=== PATIENT | male | born 1980 ===

== ENCOUNTER 2025-01-12 09:18 | Day surgery (SDC) | payer OTHER, SELFPAY ==
--- NOTE | 2024-12-27 08:34 | HPS.HSE ---
Family Physician
-
Family Physician: NOT KNOW UNKNOWN - PT DOES
Chief Complaint
-
Supraventricular tachycardia.
History of Present Illness
The patient is a 44 year old male presenting today for supraventricular tachycardia. The patient reports a longstanding history of palpitations and increased anxiety associated with his arrhythmia. He notes that his palpitations have been
increasing in severity and duration despite reported compliance with current medical therapy. Pharmacological therapy includes Diltiazem and Metoprolol Succinate. Other prior treatment measures have included Valsalva maneuvers. He notes that his
current symptoms greatly interfere with his activities of daily living and overall impact his quality of life. He is interested in pursuing with an EP study and supraventricular tachycardia ablation for further arrhythmia management. He denies any
current complaints today such as chest pain, shortness of breath, nausea, vomiting, diarrhea, lightheadedness, dizziness, cough, sore throat, or fever.
Medical History
Past Medical History
Past Medical History: Reports Other
Additional Past Medical History:
1. Supraventricular tachycardia, pharmacological therapy with Diltiazem and Metoprolol Succinate.
2. Hypertension with white coat syndrome.
3. Aortic regurgitation.
4. GERD.
5. Hemorrhoids.
6. Benign paroxysmal positional vertigo.
7. Herniated disc of lumbar spine.
8. Anxiety.
9. Obesity, BMI 35.9.
Past Surgical History: Reports Other
Additional Past Surgical History:
1. Appendectomy.
2. Nasal septum surgery.
3. L[place] teeth extraction.
4. Colonoscopy.
Social History
Tobacco: Non-smoker
Alcohol: None
Personal:
Living: With Family (in a 3 story home. )
Family History
Family History: Not pertinent
Allergies / Home Medications
Allergy/Medication List:
Home medications:
1. Co Q10 200 mg p.o. daily.
2. Diltiazem 240 mg p.o. at bedtime.
3. Fish Oil 2,000 mg p.o. at bedtime.
4. Losartan 25 mg p.o. at bedtime.
5. Metoprolol Succinate 50 mg p.o. twice a day.
6. Vitamin D3-K2 1 capsule p.o. daily.
Allergies: No known allergies.
Review of Systems
-
A 12 point ROS was completed and negative except as noted: Yes
Physical Exam
Vital Signs
Blood pressure 161/98 in the setting of anxiety. Heart rate 67. Respirations 18. Pulse ox 98% on room air.
Height 6 feet, 0.5 inches. Weight 121.7 kg. BMI 35.9.
Physical Exam
General: Well Developed, Well Nourished and No Apparent Distress
HEENT: NormoCephalic, Moist mucous membranes, Atraumatic and PERRLA
Respiratory: Clear
Cardiac: Regular Rhythm
GI: Soft, Non Tender, Non Distended and Other (Obese. )
Musculoskeletal: No Edema and Normal Gait & Station
Skin: Warm and Dry
Neuro: AO x 3 and Nonfocal/grossly intact
Laboratory Results
-
DIAGNOSTIC STUDIES as of 12/27/2024: White blood cell count 7.7. Hemoglobin 15.1. Platelet count 297,000. Sodium 142. Potassium 4.4. BUN 15. Creatinine 1.1. Glucose 112. Calcium 9.7. Magnesium 1.9. AST 32. ALT 32. Albumin 5.0.
EKG 12/27/2024: Normal sinus rhythm.
Echocardiogram 11/01/2024: Estimated ejection fraction is 56.6%. Concentric remodeling of the left ventricle. Trace to mild aortic regurgitation. Study done in normal sinus rhythm. No significant changes since 2019.
Nuclear stress test 11/08/2024: Low risk stress test. No clear evidence of ischemia or infarction noted on perfusion images.
Impression/Plan
-
IMPRESSION/PLAN:
1. Supraventricular tachycardia: The patient is in need of an EP study and supraventricular tachycardia ablation with Dr. Jasiel Ram on 01/12/2025. The benefits and risks of the procedure have been explained to the patient. The patient
understands these risks and wishes to proceed.
[2024-12-27 09:00] VITALS: BMI 35.9
[2024-12-27 09:21] LABS: % Basophils 1.4 % (0-2); % Eosinophils 6.3 % (0-6); % Immature Granulocytes 0.3 % (0-0.5); % Lymphocytes 25.6 % (20.5-51.1); % Monocytes 7.5 % (1.7-9.3); % Neutrophils 58.9 % (42.2-75.2); Absolute Basophils 0.1 10^3/uL (0-0.2); Absolute Eosinophils 0.5 10^3/uL (0-0.7); Absolute Monocytes 0.6 10^3/uL (0.1-0.6); Absolute Neutrophils 4.6 10^3/uL (1.4-6.5); Hematocrit 43.5 % (39.0-52.0); Hemoglobin 15.1 g/dL (13.0-18.0); Mean Corp Hgb Conc. 34.7 g/dL (33.0-37.0); Mean Corpuscular Volume 86.3 fL (80.0-94.0); Nucleated Red Blood Cells % 0 % (-); Platelet Count 297 10^3/uL (130-400); Red Blood Cell Count 5.04 10^6/uL (4.70-6.10); White Blood Cell Count 7.7 10^3/uL (4.8-10.8)
[2024-12-27 09:38] LABS: ALT (SGPT) 32 U/L (0-50); AST (SGOT) 32 U/L (17-59); Alkaline Phosphatase 78 U/L (38-126); Blood Urea Nitrogen 15 mg/dl (9-20); Calcium 9.7 mg/dl (8.4-10.2); Carbon Dioxide 29 mmol/L (22-30); Chloride 104 mmol/L (98-107); Estimated Creatinine Clearance 117 ml/min; Glucose 112 mg/dl (70-99); Magnesium 1.9 mg/dl (1.6-2.3); Potassium 4.4 mmol/L (3.5-5.1); Sodium 142 mmol/L (135-145); Total Bilirubin 0.6 mg/dl (0.2-1.3); Total Protein 7.9 g/dl (6.3-8.2); eGFR > 60.00
[2025-01-12] VITALS (16 sets, daily range): BP systolic 151–193; BP diastolic 85–113; BMI 35.9
--- NOTE | 2025-01-12 10:51 | ITS.CL.ABL ---
Addendum entered and electronically signed by Jasiel Ram DO 01/12/25 21:03:
Addendum:
Following procedure and recovery, patient was noted to have a swollen uvula by anesthesia. In discussion with anesthesia physician, patient was given Benadryl and steroids which had some mild improvement. It is likely per anesthesia's evaluation
and that nasal trumpet caused irritation to uvula during procedure and cardioversion. In evaluation of patient this evening, patient reporting mild improvement in denying any shortness of breath difficulty breathing. Notes mild irritation in back
of throat. Will continue to monitor and admit patient overnight for surveillance. If unchanged, consider evaluation by ENT. Thank you.
Original Note:
Parts Counterman - Ablation
Ablation
Procedure Report:
Primary Care: ZIGGY Franklin
Primary Dump Truck Driver Off Highway: Dr. Noelle Tao
Procedure Date: 01/12/2025
Procedure
Electrophysiology Study with SVT ablation
Left atrial recording / pacing
IV drug for arrhythmia induction
Transseptal Access
Electroanatomic Mapping
Intracardiac Ultrasound
Patient History
Patient's pleasant 44-year-old male with a past medical history significant for hypertension, anxiety, obesity, and symptomatic SVT; appeared to long RP tachycardia on surface EKG.
Method
After informed consent was obtained, the patient was brought to the EP lab in a post-absorptive, non-sedated state. A peripheral IV was in place. Continuous electrocardiography, blood pressure and pulse oximetry monitoring was initiated and
cardioversion / defibrillator electrodes were positioned on the chest in an AP orientation. A 'time-out' was called. Conscious sedation was administered with the assistance of the anesthesia services, and local anesthesia was given at the femoral
vein access sites.
Using modified Seldinger technique, vascular access was achieved and sheaths were placed. Multipolar catheters were advanced to the coronary sinus, His bundle recording position, right ventricle, and high right atrium. Following the determination
of baseline conduction intervals, comprehensive EP study was performed. Pacing and recording from the RA, RV, HBE, and CS / LA was performed.
For arrhythmia details, see below.
Fluoroscopy time:
4.2 min; 11.19 mGy; DAP 3.46
Total RF time:
8 min 12s (22 lesions)
LA Pressure:
Pre: 11 mmHg (in AF)
Post: 2 mmHg (in SR)
Estimated Blood Loss
5 mL
Complications
None
At the end of the procedure, all catheters and sheaths were removed and hemostasis was assured with figure of 8 suture and manual pressure. The patient was returned to the recovery area in stable condition.
Access Sites:
Left Femoral Vein: 2 sheaths (10 Fr, 6 Fr)
Right Femoral Vein: 2 sheaths (9 Fr upsized to 11.5 Fr, 7 Fr, 6 Fr)
Baseline Intervals:
Rhythm: SR
MA: 156 ms
AH: 81 ms
HV: 46 ms
QRS: 95 ms
QT: 375 ms
Post-Procedure Intervals:
MA: 177 ms
AH: 86 ms
HV: 42 ms
QRS: 60 ms
QT: 400 ms
QTc: 456 ms
A-A: 769 ms
R-R: 769 ms
AV Conduction:
- AVWB at 350 msec
- VAWB at 410 msec
Refractory Periods
- AERP 600/300 ms (no jump or AVNERP noted)
Procedure Synopsis:
The patient entered the room in sinus rhythm. Following ultrasound-guided access (images stored and record), catheters were placed in appropriate position (HRA, his position, coronary sinus, and RV apex). Baseline measurements were performed.
Baseline functional testing was performed. Patient study was initiated with VA Wenckebach. During ventricular pacing, with a cycle length nearing 330 ms, atrial activation is noted by coronary sinus change from concentric to eccentric activation
with CS 1-2/3-4 earliest (in further review of CS 3�4 appeared earliest). Next AV Wenckebach was performed. Para-Hisian pacing was performed demonstrated a rachael response. No induction of arrhythmia at this time. Atrial pacing with a single
extrastimuli in decremental fashion was performed. Tachycardia was induced at 600/270 ms. Tachycardia was narrow complex, 340 ms cycle length, eccentric activation with CS 3�4 earliest. Ventricular overdrive pacing demonstrated a V�a�V response
ruling out AT. PPI minus TCL was greater than 115 with SA minus VA greater than 85. Atrial pacing from CS 1�2 demonstrated a PPI minus TCL of roughly 50 ms. Surface ECG during tachycardia appears as clinical SVT noted by ECG. Based on these
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 Ventricular overdrive pacing terminated the arrhythmia. Arrhythmia was once more induced however this degenerated into atrial fibrillation. Cardioversion was
performed twice however arrhythmia with spontaneous induction degenerated once more and atrial fibrillation. Therefore, additional access was obtained in standard fashion as noted above and a 10 British short sheath was placed in the left groin for
introduction of intracardiac ultrasound. Next, the short 9 British sheath was exchanged for an 11.5 British steerable sheath. Intracardiac ultrasound (ICE) was carefully advanced into the right atrium to guide sheath placement over a J-wire, catheter
placement, guide trans-septal puncture, identify potential complications, identify anatomic structures and ensure proper contact between ablation catheter and tissue. Heparin was given prior to trans-septal puncture. Heparin was given to achieve and
maintain a target ACT of 300-400 seconds throughout the procedure. Trans-septal access was performed under ICE guidance. The trans-septal puncture was performed with a SafeSept wire through a Brockenbrough needle assembly through the steerable
sheath. The wire was visualized as it entered the LSPV and system advanced under ICE guidance and fluoroscopy into the LA. The Brockenbrough needle assembly, SafeSept wire and sheath dilator were removed under negative pressure. LA pressure was
measured and recorded. HD advisor grid was advanced into the left atrium. Cardioversion was once more performed and upon initial mapping, patient spontaneous return of his AVRT via inferolateral left-sided pathway which degenerated into atrial
fibrillation. Therefore, HD advisor grid was removed and TactiCath DF SE irrigated ablation catheter was advanced into the LA. ablation was performed in the area of the inferolateral pathway bracketing CS 3�4 electrodes which appeared to be
earliest atrial activation. Careful monitoring was performed during ablation monitoring impedance, temperature, power. Ablation was performed with 30 W. Following ablation within this region, patient was once more cardioverted with with
hoahaoism of sinus rhythm. For the remainder of the procedure, patient did not demonstrate atrial fibrillation. Subsequent atrial extrastimuli pacing induced occasional echo beats through the inferolateral pathway allowing fine-tuned mapping of
this region. Isoproterenol was also used allowing for nonsustained SVT. Following thorough and extensive mapping within this region, additional ablation lesions were performed in this region. Additional electrophysiology study was performed in an
attempt to reinduce his arrhythmia or other supraventricular arrhythmias. Patient was noninducible. Additionally, placing the ablation catheter within the LV and pacing from ablation catheter demonstrated concentric activation and no activation of
atrium via the inferolateral pathway which had been ablated. Following waiting phase, electrophysiology study once more performed with attempt for induction of arrhythmias, no arrhythmias were induced. Intracardiac ultrasound demonstrated no
pericardial effusion or changes during study or at study completion. Catheters and sheaths were removed and protamine given. Hemostasis achieved with [id number] suture and manual pressure to both groins.
Recommendations
- If patient meeting clinical metrics, okay for discharge home
- Bedrest with straight-leg precautions 4 hours
- Eliquis 5 mg twice daily for 30 days
- Continue home medications as indicated
- Follow-up in office in 4-6 weeks
Jasiel Ram DO, FAC, [facility]
Clinical Cardiac Electrophysiology
cc: Andrea Minaya, ZIGGY; Dr. Noelle Tao
[2025-01-12 12:50] LABS: ACT-LR - POC > 397 Seconds (116-155)
[2025-01-12 12:51] LABS: ACT-LR - POC 326 Seconds (116-155)
[2025-01-12 13:10] LABS: ACT-LR - POC 335 Seconds (116-155)
[2025-01-12 14:05] LABS: ACT-LR - POC > 397 Seconds (116-155)
[2025-01-12 14:05] LABS: ACT-LR - POC > 397 Seconds (116-155)
[2025-01-12 14:12] LABS: ACT-LR - POC 348 Seconds (116-155)
[2025-01-12 14:13] LABS: ACT-LR - POC 358 Seconds (116-155)
[2025-01-12 14:29] LABS: ACT-LR - POC 197 Seconds (116-155)
[2025-01-12 15:18] LABS: ACT-LR - POC > 397 Seconds (116-155)
--- NOTE | 2025-01-12 15:29 | CM ---
Asked to check co-pay for Eliquis 5 mg po bis. His co-pay would be $50.00 a month. He has commercial insurance so he can use the $10.00 co-pay card. Updated the BEDSPREAD SEAMER.
[2025-01-12] MEDS: CARDIZEM CD 240 MG PO (16:40)
[2025-01-12] MEDS: COZAAR 25 MG PO (16:41)
[2025-01-12] MEDS: ANESTHETIC LOZENGE 1 LOZENGE PO (16:44)
[2025-01-12] MEDS: BENADRYL 25 MG PO (17:49)
[2025-01-12] MEDS: DECADRON 10 MG IV (18:32)
--- NOTE | 2025-01-12 18:42 | PTCARENOTE ---
Anesthesia ordered meds and spoke with Dr Flores ,waitng to see Dr Flores as per patient being admitted
[2025-01-12] MEDS: TOPROL XL 50 MG PO (20:32)
[2025-01-12] MEDS: ELIQUIS 5 MG PO (21:26)
--- NOTE | 2025-01-12 21:39 | PTCARENOTE ---
Received pt from laborer heading @ change of shift. AAOx3. BP 190/95. Other VSS. Right and left groin clean, dry, and intact. Pt having 6/10 throat pain/discomfort. Feels as though he 'has phlem that he cannot clear.' Denies SOB @ this time. Discussed plan
of care for evening and notifying RN with any chest pain, further throat discomfort, SOB, or feeling as though his throat is closing. Pt verbalized understanding. Call onofre within reach.
[2025-01-13] MEDS: DECADRON 10 MG IV (03:40)
[2025-01-13 03:42] VITALS: BP 140/79
[2025-01-13 04:36] LABS: Hematocrit 40.7 % (39.0-52.0); Hemoglobin 14.5 g/dL (13.0-18.0); Mean Corp Hgb Conc. 35.6 g/dL (33.0-37.0); Mean Corpuscular Hgb 30.2 pg (27.0-31.0); Mean Corpuscular Volume 84.8 fL (80.0-94.0); Mean Platelet Volume 10.6 fL (7.4-10.4); Platelet Count 282 10^3/uL (130-400); Red Cell Dist. Width 12.9 % (11.5-14.5); White Blood Cell Count 10.8 10^3/uL (4.8-10.8)
[2025-01-13 05:02] LABS: Blood Urea Nitrogen 11 mg/dl (9-20); Calcium 10.1 mg/dl (8.4-10.2); Carbon Dioxide 23 mmol/L (22-30); Chloride 108 mmol/L (98-107); Estimated Creatinine Clearance > 125 ml/min; Glucose 137 mg/dl (70-99); Magnesium 1.9 mg/dl (1.6-2.3); Potassium 4.3 mmol/L (3.5-5.1); Sodium 142 mmol/L (135-145); eGFR > 60.00
[2025-01-13 05:12] VITALS: BMI 34.9
[2025-01-13 07:06] VITALS: BP 143/77
[2025-01-13] MEDS: ELIQUIS 5 MG PO (09:27)
[2025-01-13] MEDS: TOPROL XL 50 MG PO (09:27)
--- NOTE | 2025-01-13 10:18 | W.PN.CARDCBS ---
Addendum entered and electronically signed by Facundo Alaniz MD 01/13/25 10:40:
Patient seen and examined
Agree with CR HUMAN RESOURCES ASSISTANT MANAGER note and assessment
Agree with MUNICIPAL ENGINEER plan
����Physical Exam
���������������������General:��no apparent distress, not acutely ill
���������������������������Neck:��supple. no meningeal signs. normal psoterior pharynx
������������������������
���������������������������Heart:��s1/s2 regular rate and rhythm, no murmur. equal radial pulses.
��������������������������Lungs: ��no acute respiratory distress. clear bilaterally
����������������������Abdomen:�normal bowel sounds. not tender. no CVAT
��������������������������Neuro:��alert and oriented. no focal neurological deficits
������������������������������Skin: ��no rash
�����������������������Psychiatric:�well kept. interactive and cooperative
�����������������������Extremities:��no edema. no calf tenderness. negative homans. good distal pulses
Impression:
Symptomatic SVT
post LA SVT ablation 01/12/25
post procedure uvula swelling
HTN
BPPV
Anxiety
LDD
GERD
Plan:
post SVT ablation he was having throat swelling and irritation with difficulty swallowing post procedure
admitted overnight for observation, treated by anesthesia with steroids and Benadryl
this morning much improved, no difficulty swallowing and stable for discharge from a cardiovascular perspective
During the procedure Atrial fibrillation was induced requiring multiple Cardioversion
tele SR, no ectopy or atrial fibrillation seen
1 month of Eliquis
continue diltiazem and metoprolol with eventual discontinuation
Activity restrictions reviewed
f/u Dr. Ram in 1 mo
f/u ATC in 3 mo
home today
Original Note:
Today's Communication / Plan
-
stable for d/c home
Impression / Plan
-
PCP: Andrea Minaya PA-C
CDY: Dr. Tao
Impression:
Symptomatic SVT
post LA SVT ablation 01/12/25
post procedure uvula swelling
HTN
BPPV
Anxiety
LDD
GERD
Plan:
post SVT ablation he was having throat swelling and irritation with difficulty swallowing post procedure
admitted overnight for observation, treated by anesthesia with steroids and Benadryl
this morning much improved, no difficulty swallowing
During the procedure Atrial fibrillation was induced requiring multiple Cardioversion
tele SR, no ectopy or atrial fibrillation seen
groins stable
He will be on OAC Eliquis for 1 month
continue diltiazem and metoprolol
Activity restrictions reviewed
f/u Dr. Ram in 1 mo
f/u ATC in 3 mo
home today
Progress Note - Director [employer]
Subjective
Date of Service: January 13, 2025
denies cp, sob, mild throat irritation but much improved from last night
Objective
Labs:
01/13/25 04:01
01/13/25 04:01
Labs
Hgb 14.5 g/dL (13.0-18.0) 01/13/25 04:01
Hct 40.7 % (39.0-52.0) 01/13/25 04:01
Plt Count 282 10^3/uL (130-400) 01/13/25 04:01
Sodium 142 mmol/L (135-145) 01/13/25 04:01
Potassium 4.3 mmol/L (3.5-5.1) 01/13/25 04:01
BUN 11 mg/dl (9-20) 01/13/25 04:01
Creatinine 0.8 mg/dL (0.7-1.3) 01/13/25 04:01
Glucose 137 mg/dl (70-99) H 01/13/25 04:01
Vital Signs and I&O:
Vital Signs
Temp Pulse Resp BP Pulse Ox
98.7 F 67 20 143/77 96
01/13/25 07:06 01/13/25 07:45 01/13/25 07:06 01/13/25 07:06 01/13/25 09:33
Vital Signs
Temp Pulse Resp BP Pulse Ox
98.7 F 67 20 143/77 96
01/13/25 07:06 01/13/25 07:45 01/13/25 07:06 01/13/25 07:06 01/13/25 09:33
Intake & Output
01/11/25 01/12/25 01/13/25 01/14/25
06:59 06:59 06:59 06:59
Output Total 500 / 500
Balance -500 / -500
Physical Exam
Physical Exam
NAD, AOX3
S1, S2, RRR
CTAB, non labored, no wheeze
SNTND bsx4
b/l groins c/d/i no HT, soft
--- NOTE | 2025-01-13 11:10 | PTCARENOTE ---
Pt seen by Anesthiologist, and Roseann Duff NP. Telemetry and IV device removed. Discharge instructions reviewed with pt and his regarding activity and driving restrictions, wound care, medications and their possible side effects,
reporting cares and concerns and follow up appt's. Very good understanding taught back to this RN. Pt escorted out via wheelchair and discharged to home.
--- NOTE | 2025-01-13 12:34 | CM ---
CM following for DC planning needs.
Pt. for DC today. There are no concerns or needs noted.
Pt. is functionally indep. at baseline w/ ADLs, mobility without the use of any assisted device.
Plan- home
--- NOTE | 2025-01-13 14:06 | W.DS.TRANS ---
DC Summary - Solvent Recoverer
-
Discharge Instructions:
Sleep Apnea Risk Intermediate
Discharge Diagnosis/Procedures SVT post ablation
Diet Low Cholesterol
Driving Restrictions No driving for 24 hours
Instructions: Apixaban
Stand-Alone Forms: DC Instructions- Cath/EP Lab
Return to Work
Changes to Home Medications: Yes
Discharge Medications:
DC Medications w/original date entered in [employer]
Fish Oil 2,000 mg PO HS 12/23/24
coenzyme Q10 100 mg capsule (CoQ-10) 200 mg PO DAILY 12/23/24
diltiazem HCl 240 mg tablet,extended release 24 hr 240 mg PO HS 12/23/24
losartan 25 mg tablet 25 mg PO HS 12/23/24
metoprolol succinate 50 mg tablet,extended release 24 hr 50 mg PO BID 12/23/24
vitamin D3-vitamin K2 1 cap PO DAILY 12/23/24
apixaban 5 mg tablet (Eliquis) 5 mg PO BID #60 tabs 01/12/25
Home Medication Changes
new to eliquis
Pending Results: No
== END 2025-01-13 11:05 | disposition home or self-care (01) ==
LOC: CATH 09:18
PROVIDERS: Nurse Practitioner Adult Health; ATTENDING PHYSICIAN Internal Medicine Cardiovascular Disease; OTHER PHYSICIAN Internal Medicine Cardiovascular Disease
DX: I47.10 Supraventricular tachycardia, unspecified (principal); I10 Essential (primary) hypertension; K21.9 Gastro-esophageal reflux disease without esophagitis; Z87.19 Personal history of other diseases of the digestive system; H81.10 Benign paroxysmal vertigo, unspecified ear; M51.26 Other intervertebral disc displacement, lumbar region; F41.9 Anxiety disorder, unspecified; E66.9 Obesity, unspecified; Z68.35 Body mass index [BMI] 35.0-35.9, adult; Z79.899 Other long term (current) drug therapy; M51.369 Other intervertebral disc degeneration, lumbar region without mention of lumbar back pain or lower extremity pain
CPT/HCPCS: 93662; C1732; C1730 ×2; C1894; C1766; C2630; C1892; 36415; 80048; 80053; 83735; 85025; 85027; 85347; 93005; 93462; 93623; 93653